=== PATIENT | female | born 1940 | race Hispanic/Latino ===

== ENCOUNTER 2017-10-19 18:48 | Emergency (ER) | payer OTHER ==
[2017-10-19] MEDS ORDERED: LIDOCAINE HCL 1% 20 ML VIAL ONE (19:47)
[2017-10-19] MEDS ORDERED: TETANUS/DIPHTHERIA TOXOID [ADULT] 0.5 ML VIAL IM ONE (21:44)
== END 2017-10-19 21:54 | disposition home or self-care (01) ==
LOC: EDH 18:48
DX: S01.511A Laceration without foreign body of lip, initial encounter (principal); W18.09XA Striking against other object with subsequent fall, initial encounter; Y93.89 Activity, other specified; Y92.89 Other specified places as the place of occurrence of the external cause; Y99.8 Other external cause status
CPT/HCPCS: 12051; 70450; 90471; 90714

== ENCOUNTER 2023-05-12 08:12 | Inpatient (IN) | payer MEDICARE, OTHER ==
[2023-05-12] VITALS (24 sets, daily range): BP systolic 110–157; BP diastolic 44–87; PULSE 65–117; RESP 10–20; O2SAT 96
[~2023-05-12] VITALS: Ht 160 cm; Wt 49.8 kg
[2023-05-12] MEDS ORDERED: ONDANSETRON 4MG INJ IVP ONE (08:30)
[2023-05-12] MEDS ORDERED: MORPHINE 2 MG SYG IVP ONE ×2 (08:30→10:00)
[2023-05-12] MEDS ORDERED: 0.9%NACL 1000ML 1,000 ML IV SCH (09:00)
[2023-05-12 09:09] LABS: BASOPHILS # (AUTO) 0.09 K/uL (0.00-0.20); BASOPHILS % (AUTO) 0.6 % (0.0-5.0); EOSINOPHILS # (AUTO) 0.03 K/uL (0.00-0.70); EOSINOPHILS % (AUTO) 0.2 % (0.0-8.0); HEMATOCRIT 36.5 % (36-48); IMMATURE GRANULOCYTE ABSOLUTE 0.08 K/uL (0-1); LYMPHOCYTES # (AUTO) 1.1 K/uL (1.0-4.8); LYMPHOCYTES % (AUTO) 6.5 % (21.0-51.0); MEAN CORPUSCULAR HGB CONC 32.9 g/dL (32.0-36.0); MEAN CORPUSCULAR VOLUME 91.3 fL (79-99); MONOCYTES # (AUTO) 0.6 K/uL (0.1-1.0); MONOCYTES % (AUTO) 3.7 % (3.0-13.0); NEUTROPHILS # (AUTO) 14.5 K/uL (1.8-7.7); NEUTROPHILS % (AUTO) 88.5 % (40.0-77.0); PLATELET COUNT (AUTO) 221 K/uL (130-400); RED CELL DISTRIBUTION WIDTH 13.5 % (11.0-15.5); WHITE BLOOD COUNT (AUTO) 16.4 K/uL (4.8-10.8)
[2023-05-12 09:18] LABS: CREATININE 0.6 mg/dL (0.5-1.5); POTASSIUM 3.6 mmol/L (3.5-5.1)
[2023-05-12 09:23] LABS: ALBUMIN 3.2 g/dL (3.5-5.0); BILIRUBIN,TOTAL 0.4 mg/dL (0.2-1.0); TOTAL PROTEIN, SERUM 7.1 g/dL (6.0-8.3)
[2023-05-12 10:15] LABS: APPEARANCE,URINE CLOUDY (CLEAR); BILIRUBIN,URINE NEGATIVE (NEGATIVE); COLOR,URINE LIGHT-YELLOW (YELLOW); GLUCOSE, URINE (UA) NEGATIVE (NEGATIVE); KETONES,URINE NEGATIVE (NEGATIVE); LEUKOCYTE ESTERASE ,URINE NEGATIVE Leu/uL (NEGATIVE); NITRATE,URINE NEGATIVE (NEGATIVE); OCCULT BLOOD,URINE NEGATIVE (NEGATIVE); PROTEIN,URINE NEGATIVE (NEGATIVE); UROBILINOGEN,URINE 0.2 mg/dL (0.2-1.0)
[2023-05-12 10:19] LABS: ADD UA MICROSCOPIC YES
[2023-05-12 10:24] LABS: BACTERIA,URINE RARE /HPF (None Seen); MUCUS,URINE RARE LPF (None Seen)
[2023-05-12] MEDS ORDERED: ACETAMINOPHEN 325 MG TAB PO PRN (11:00)
[2023-05-12] MEDS ORDERED: ONDANSETRON 4MG INJ IVP PRN (11:00)
[2023-05-12] MEDS ORDERED: MORPHINE 2 MG SYG IVP PRN (11:00)
[2023-05-12] MEDS ORDERED: LORA0.5T83 PO (11:40)
[2023-05-12] MEDS ORDERED: ACET500C4 PO (11:40)
[2023-05-12] MEDS ORDERED: MEGE40L PO (11:40)
[2023-05-12] MEDS ORDERED: CYAN-52 PO (11:40)
[2023-05-12] MEDS: LACTATED RINGERS 1000ML 1,000 ML IV SCH ×2 (11:41→17:04)
[2023-05-12] MEDS ORDERED: LORAZEPAM 2 MG/ML 1 ML VIAL IVP ONE (12:30)
[2023-05-12] MEDS ORDERED: ONDANSETRON 4MG INJ ONE ×2 (13:04→19:00)
[2023-05-12] MEDS ORDERED: NEOSTIGMINE 5MG/5ML SYR IV ONE (13:04)
[2023-05-12] MEDS ORDERED: DEXAMETHASONE SOD PHOSPHATE 10MG/ML 1ML VIAL ONE (13:04)
[2023-05-12] MEDS ORDERED: GLYCOPYRROLATE 1 MG/5 ML SYRINGE ONE (13:04)
[2023-05-12] MEDS ORDERED: PROPOFOL 10 MG/ML 20ML VIAL IV ONE (13:04)
[2023-05-12] MEDS ORDERED: FENTANYL CITRATE PF 50 MCG/1 ML 2ML VIAL ONE (13:04)
[2023-05-12] MEDS ORDERED: LIDOCAINE PF 100MG/5ML (2%) SYRINGE 5ML ONE (13:04)
[2023-05-12] MEDS ORDERED: MIDAZOLAM HCL 1 MG/ML 2ML VIAL ONE (13:05)
[2023-05-12] MEDS ORDERED: ROPIVACAINE 0.5% 5MG/ML 30ML ONE (13:05)
[2023-05-12] MEDS ORDERED: CEFTRIAXONE 1G VIAL ONE (14:11)
[2023-05-12] MEDS: CEFTRIAXONE 1G VIAL IVPB SCH (14:13)
[2023-05-12] MEDS ORDERED: ALBUMIN (HUMAN) 5% 250 ML IV ONE (14:35)
[2023-05-12] MEDS ORDERED: KETAMINE 50MG/ML SYRINGE 50 MG/ML DISP.SYRIN ONE (14:59)
[2023-05-12] MEDS ORDERED: CEFAZOLIN SODIUM 1 GM VIAL ONE (15:39)
[2023-05-12] MEDS: CEFAZOLIN SODIUM 2 GM VIAL IVPB SCH (15:41)
[2023-05-12] MEDS ORDERED: SUGAMMADEX SODIUM 200 MG/2 ML VIAL IV ONE (16:26)
[2023-05-12] MEDS ORDERED: POTASSIUM CHLORIDE 10% ELIXIR 20 MEQ/15 ML UDCUP PO PRN (17:00)
[2023-05-12] MEDS ORDERED: TRAMADOL HCL 50 MG TABLET PO PRN (17:00)
[2023-05-12] MEDS: 0.9%NACL 1000ML 1,000 ML IV SCH (17:00)
[2023-05-12] MEDS ORDERED: FERROUS FUMARATE 324 MG TABLET PO PRN (17:00)
[2023-05-12] MEDS ORDERED: POTASSIUM CHLORIDE 20MEQ/100ML 100 ML IV PRN (17:00)
[2023-05-12] MEDS ORDERED: KCL 20 MEQ ERTAB PO PRN (17:00)
[2023-05-12] MEDS ORDERED: CALCIUM CARB 500MG PO PRN (17:00)
[2023-05-12] MEDS ORDERED: MEPERIDINE-PF 25 MG/ML SYG ONE (19:00)
[2023-05-12] MEDS: KETOROLAC 15MG/ML VIAL (15MG/ML) IV PRN (23:14)
[2023-05-12] MEDS: FAMOTIDINE 20MG VIAL IV SCH (23:15)
[2023-05-12] MEDS: ASPIRIN 325MG TAB PO SCH (23:18)
[2023-05-12] MEDS: ACETAMINOPHEN 500 MG TABLET PO SCH (23:22)
[2023-05-13] VITALS (7 sets, daily range): BP systolic 93–137; BP diastolic 44–66; PULSE 76–101; RESP 18–19; O2SAT 96–97
[2023-05-13] MEDS ORDERED: LORAZEPAM 2 MG/ML 1 ML VIAL IVP SCH (00:30)
[2023-05-13] MEDS: CEFAZOLIN SODIUM 2 GM VIAL IVPB SCH (01:34)
[2023-05-13] MEDS: 0.9%NACL 1000ML 1,000 ML IV SCH ×2 (03:00→16:52)
[2023-05-13 05:15] LABS: HEMATOCRIT 22.8 % (36-48); MEAN CORPUSCULAR HEMOGLOBIN 30.2 pg (27.0-33.0); MEAN CORPUSCULAR HGB CONC 32.9 g/dL (32.0-36.0); MEAN CORPUSCULAR VOLUME 91.9 fL (79-99); RED BLOOD CELL COUNT(AUTO) 2.48 MIL/uL (4.00-5.50); RED CELL DISTRIBUTION WIDTH 13.2 % (11.0-15.5); WHITE BLOOD COUNT (AUTO) 14.4 K/uL (4.8-10.8)
[2023-05-13 05:18] LABS: INR 1.01 (0.85-1.15); PROTHROMBIN TIME 11.7 SEC (9.6-11.6)
[2023-05-13 05:24] LABS: CREATININE 0.8 mg/dL (0.5-1.5); POTASSIUM 3.5 mmol/L (3.5-5.1)
[2023-05-13] MEDS: POLYETHYLENE GLYCOL 3350 17 GM POWD.PACK PO SCH (08:54)
[2023-05-13] MEDS: ASPIRIN 325MG TAB PO SCH ×2 (08:54→20:57)
[2023-05-13] MEDS: ACETAMINOPHEN 500 MG TABLET PO SCH ×2 (08:55→16:55)
[2023-05-13] MEDS: FAMOTIDINE 20MG VIAL IV SCH ×2 (08:55→20:57)
[2023-05-13] MEDS: KETOROLAC 15MG/ML VIAL (15MG/ML) IV PRN (08:56)
[2023-05-13 09:30] LABS: % IRON SATURATION 10.9 % (22-44)
[2023-05-13] MEDS: LACTATED RINGERS 1000ML 1,000 ML IV SCH ×2 (11:06→17:09)
[2023-05-13] MEDS: MORPHINE 2 MG SYG IVP PRN ×2 (11:34→21:22)
[2023-05-13] MEDS: PSYLLIUM SEED 1 EACH PACKET PO SCH (12:49)
[2023-05-13] MEDS: CEFTRIAXONE 1G VIAL IVPB SCH (16:36)
[2023-05-13] MEDS: MEMANTINE HCL 5 MG TABLET PO SCH (20:56)
[2023-05-13] MEDS: LORAZEPAM 0.5 MG TABLET PO PRN (20:57)
[2023-05-13] MEDS: MEGESTROL 400 MG/10 ML UDCUP PO SCH (20:57)
[2023-05-14] MEDS: ACETAMINOPHEN 500 MG TABLET PO SCH ×3 (01:00→16:54)
[2023-05-14 04:00] VITALS: BP 135/72; PULSE 118; RESP 20
[2023-05-14 04:11] LABS: HEMATOCRIT 22.2 % (36-48); MEAN CORPUSCULAR HEMOGLOBIN 30.9 pg (27.0-33.0); MEAN CORPUSCULAR HGB CONC 32.9 g/dL (32.0-36.0); MEAN CORPUSCULAR VOLUME 94.1 fL (79-99); RED BLOOD CELL COUNT(AUTO) 2.36 MIL/uL (4.00-5.50); WHITE BLOOD COUNT (AUTO) 17.7 K/uL (4.8-10.8)
[2023-05-14 04:26] LABS: CREATININE 0.9 mg/dL (0.5-1.5); POTASSIUM 3.9 mmol/L (3.5-5.1)
[2023-05-14 04:32] LABS: INR 0.96 (0.85-1.15); PROTHROMBIN TIME 11.2 SEC (9.6-11.6)
[2023-05-14] MEDS: LACTATED RINGERS 1000ML 1,000 ML IV SCH ×3 (04:41→23:15)
[2023-05-14] MEDS: MORPHINE 2 MG SYG IVP PRN (04:44)
[2023-05-14 08:00] VITALS: BP 133/76; PULSE 142; RESP 21
[2023-05-14 08:10] VITALS: O2SAT 97
[2023-05-14] MEDS: ZOSYN 3.375GM +NS 50ML IV SCH ×3 (08:58→22:02)
[2023-05-14] MEDS: FAMOTIDINE 20MG VIAL IV SCH ×2 (08:58→20:54)
[2023-05-14] MEDS: POLYETHYLENE GLYCOL 3350 17 GM POWD.PACK PO SCH (08:58)
[2023-05-14] MEDS: MEGESTROL 400 MG/10 ML UDCUP PO SCH ×2 (08:58→20:55)
[2023-05-14] MEDS: CYANOCOBALAMIN (VITAMIN B-12) 1,000 MCG TABLET PO SCH (08:59)
[2023-05-14] MEDS: ASPIRIN 325MG TAB PO SCH ×2 (08:59→20:55)
[2023-05-14] MEDS ORDERED: MEGESTROL ACETATE 40 MG PO SCH (09:00)
[2023-05-14 12:00] VITALS: BP 96/51; PULSE 115; RESP 19
[2023-05-14] MEDS: PSYLLIUM SEED 1 EACH PACKET PO SCH (13:00)
[2023-05-14] MEDS: LORAZEPAM 0.5 MG TABLET PO PRN (14:26)
[2023-05-14] MEDS ORDERED: COMPOUND IV MISC 1 EACH IVSOLN MISC PRN (14:30)
[2023-05-14 16:00] VITALS: BP 126/81; PULSE 55; RESP 18
[2023-05-14] MEDS ORDERED: BISACODYL 5 MG TABLET.DR PO PRN (17:00)
[2023-05-14] MEDS: KETOROLAC 15MG/ML VIAL (15MG/ML) IV PRN (17:46)
[2023-05-14 20:00] VITALS: BP 143/60; PULSE 107; RESP 22
[2023-05-14] MEDS ORDERED: IRON SUCROSE COMPLEX 300 MG in 0.9% NACL 250ML 250 ML IV SCH (20:00)
[2023-05-14] MEDS: MEMANTINE HCL 5 MG TABLET PO SCH (20:55)
[2023-05-15] VITALS: BP 122/56; PULSE 66; RESP 20
[2023-05-15] MEDS: ACETAMINOPHEN 500 MG TABLET PO SCH ×3 (01:00→17:00)
[2023-05-15 03:27] LABS: MEAN CORPUSCULAR HEMOGLOBIN 30.4 pg (27.0-33.0); MEAN CORPUSCULAR HGB CONC 33.5 g/dL (32.0-36.0); MEAN CORPUSCULAR VOLUME 90.7 fL (79-99); RED BLOOD CELL COUNT(AUTO) 2.27 MIL/uL (4.00-5.50); RED CELL DISTRIBUTION WIDTH 13.9 % (11.0-15.5); WHITE BLOOD COUNT (AUTO) 12.4 K/uL (4.8-10.8)
[2023-05-15 03:31] LABS: HEMATOCRIT 20.6 % (36-48)
[2023-05-15 03:35] LABS: CREATININE 0.9 mg/dL (0.5-1.5); POTASSIUM 3.5 mmol/L (3.5-5.1)
[2023-05-15 03:37] LABS: INR 1.06 (0.85-1.15); PROTHROMBIN TIME 12.2 SEC (9.6-11.6)
[2023-05-15 04:00] VITALS: BP 121/66; PULSE 76; RESP 20
[2023-05-15] MEDS: ZOSYN 3.375GM +NS 50ML IV SCH (05:17)
[2023-05-15 08:00] VITALS: BP 146/68; PULSE 90; RESP 16
[2023-05-15] MEDS: ASPIRIN 325MG TAB PO SCH (09:00)
[2023-05-15 09:30] VITALS: O2SAT 96
[2023-05-15] MEDS: POLYETHYLENE GLYCOL 3350 17 GM POWD.PACK PO SCH (09:49)
[2023-05-15] MEDS: MEGESTROL 400 MG/10 ML UDCUP PO SCH (09:50)
[2023-05-15] MEDS: FAMOTIDINE 20MG VIAL IV SCH (09:51)
[2023-05-15] MEDS: CYANOCOBALAMIN (VITAMIN B-12) 1,000 MCG TABLET PO SCH (09:51)
[2023-05-15] MEDS: LACTATED RINGERS 1000ML 1,000 ML IV SCH (09:53)
[2023-05-15] MEDS ORDERED: HALOPERIDOL INJ 5 MG/ML VIAL IM SCH (11:20)
[2023-05-15 12:00] VITALS: BP 103/34; PULSE 94; RESP 16
[2023-05-15] MEDS: PSYLLIUM SEED 1 EACH PACKET PO SCH (12:42)
[2023-05-15] MEDS: LORAZEPAM 0.5 MG TABLET PO PRN (12:43)
[2023-05-15] MEDS ORDERED: ZOSYN 3.375GM +NS 50ML IV SCH (13:00)
[2023-05-15 16:00] VITALS: BP 109/56; PULSE 87; RESP 16
[2023-05-15] MEDS ORDERED: BISACODYL 10 MG SUPP.RECT RC PRN (17:00)
[2023-05-15 17:53] LABS: HEMATOCRIT 26.8 % (36-48)
== END 2023-05-15 18:15 | disposition home or self-care (01) | DRG 853 ==
LOC: EDH 08:12 → EDHIP 11:10 → 4AH 21:00
PROVIDERS: ADMIT Internal Medicine; ATTEND Internal Medicine
PROC: BQ11ZZZ Fluoroscopy of Left Hip (ICD-10-PCS; 2023-05-12)
PROC: 0QS734Z Reposition Left Upper Femur with Internal Fixation Device, Percutaneous Approach (ICD-10-PCS; principal; 2023-05-12 14:55)
PROC: 30233N1 Transfusion of Nonautologous Red Blood Cells into Peripheral Vein, Percutaneous Approach (ICD-10-PCS; 2023-05-15)
DX: A41.9 Sepsis, unspecified organism (principal); S72.142A Displaced intertrochanteric fracture of left femur, initial encounter for closed fracture; D62 Acute posthemorrhagic anemia; E44.0 Moderate protein-calorie malnutrition; N39.0 Urinary tract infection, site not specified; F03.94 Unspecified dementia, unspecified severity, with anxiety; Z68.23 Body mass index [BMI] 23.0-23.9, adult; D69.6 Thrombocytopenia, unspecified; D50.9 Iron deficiency anemia, unspecified; W01.0XXA Fall on same level from slipping, tripping and stumbling without subsequent striking against object, initial encounter; Y92.009 Unspecified place in unspecified non-institutional (private) residence as the place of occurrence of the external cause; Y93.89 Activity, other specified; Y99.8 Other external cause status; Z85.038 Personal history of other malignant neoplasm of large intestine
CPT/HCPCS: 36415; 71045; 72170; 73502; 80048; 80053; 81001; 83540; 83550; 85014; 85018; 85025; 85027; 85610; 86850; 86900; 86901; 86923; 87040; 87088; 92610; 93005; 96361; 96365; 96375; G0378; J0690; J0696; J1100; J1630; J1756; J1885; J2001; J2060; J2175; J2250; J2270; J2405; J2543; J2704; J2710; J2795; J3010; J3490; J7050; J7120; P9016; P9045; A4216; A4222; A4223; A4600; A4649; A6219; C1713; G0168